=== PATIENT | female | born 1970 | race African-American/Black ===

== ENCOUNTER 2017-03-08 16:50 | Emergency (ER) | payer BC ==
[~2017-03-08] VITALS: Ht 170.2 cm; Wt 103.0 kg
[~2017-03-08 16:50] MED LIST: ALTACE10 MG PO; ASPIR 8181 MG PO; COREG3.125 MG PO; COZAAR 50 MG TA50 M2 PO; GUAIFENESIN-CODE5 ML PO; HYDROCODONE-AP1 EAC6 PO; IBUPROFEN 600600 M1 PO; IBUPROFEN 800800 M1 PO; LASIX 20 MG TAB20 MG PO; MULTIVITAMIN; NEXIUM20 M1 PO; NORCO 5-325 TA1 EACH PO; NORFLEX100 MG PO; NORVASC 5 MG TAB5 MG PO; NORVASC10 MG PO; OMEPRAZOLE40 MG PO; ONDANSETRON HCL4 M2 PO; OXYCONTIN10 M1 OR; PHENERGAN 25 MG25 M1 PO; PROTONIX40 M1 PO; TUSSIONEX PENN473 ML PO; ULTRACET TABLE1 EACH PO; VALIUM2 MG PO; ZANTAC 150MG T150 MG; ZANTAC 150MG T150 MG PO; ZESTRIL20 MG PO; ZOFRAN ODT4 MG PO; ZPAK PO
[2017-03-08] MEDS ORDERED: HYDROCODONE-AP1 EAC6 PO (18:06)
[2017-03-08] MEDS ORDERED: LIORESAL 10 MG10 MG PO (18:06)
[2017-03-08] MEDS ORDERED: PHENERGAN 25 MG25 M1 PO (18:23)
== END 2017-03-08 18:27 | disposition home or self-care (01) ==
LOC: ER 16:50
DX: M54.40 Lumbago with sciatica, unspecified side (principal); I10 Essential (primary) hypertension; Z90.710 Acquired absence of both cervix and uterus; Z79.82 Long term (current) use of aspirin; Z88.5 Allergy status to narcotic agent; Z88.2 Allergy status to sulfonamides; V89.2XXA Person injured in unspecified motor-vehicle accident, traffic, initial encounter; Y93.89 Activity, other specified; Y92.89 Other specified places as the place of occurrence of the external cause; Y99.8 Other external cause status

== ENCOUNTER 2017-06-24 12:32 | Emergency (ER) | payer BC ==
[~2017-06-24] VITALS: Ht 170.2 cm; Wt 103.4 kg
[~2017-06-24 12:32] MED LIST changes: +LIORESAL 10 MG10 MG PO
[2017-06-24] MEDS ORDERED: TRAMADOL 50 MG50 MG PO (13:19)
[2017-06-24] MEDS ORDERED: NAPROSYN500 MG PO (13:19)
[2017-06-24 13:37] VITALS: BP 130/62
[2017-10-17] MEDS ORDERED: PERCOCET 10-321 EACH PO (21:02)
[2017-10-17] MEDS ORDERED: CYCLOBENZAPRINE5 MG PO (23:05)
[2017-10-17] MEDS ORDERED: NORCO 10-325 T1 EACH PO (23:05)
[2017-10-17] MEDS ORDERED: ULTRAM 50MG TAB50 MG PO (23:16)
== END 2017-06-24 13:38 | disposition home or self-care (01) ==
LOC: ER 12:32
DX: S67.21XA Crushing injury of right hand, initial encounter (principal); W22.8XXA Striking against or struck by other objects, initial encounter; Y93.89 Activity, other specified; Y92.89 Other specified places as the place of occurrence of the external cause; Y99.8 Other external cause status; I10 Essential (primary) hypertension; Z85.528 Personal history of other malignant neoplasm of kidney; Z90.710 Acquired absence of both cervix and uterus; Z88.2 Allergy status to sulfonamides; Z88.5 Allergy status to narcotic agent

== ENCOUNTER 2017-07-28 01:19 | Emergency (ER) | payer BC ==
[~2017-07-28] VITALS: Ht 170.2 cm; Wt 102.1 kg
[~2017-07-28 01:19] MED LIST changes: +NAPROSYN500 MG PO; +TRAMADOL 50 MG50 MG PO
[2017-07-28 01:53] LABS: HEMATOCRIT 38.8 % (37.0-47.0); HEMOGLOBIN 12.2 gm/dL (12.0-15.0); MCHC 31.3 g/dL (28.0-37.0); MCV 79.9 fL (80.0-100.0); RBC 4.86 mil/uL (4.20-5.00); RDW 17.5 % (10.5-14.5); WBC 3.9 thou/uL (4.0-11.0)
[2017-07-28 01:55] LABS: URINE BILIRUBIN NEGATIVE (Negative); URINE BLOOD NEGATIVE (Negative); URINE CLARITY CLEAR; URINE COLOR YELLOW; URINE GLUCOSE-RANDOM* NEGATIVE (Negative); URINE KETONES NEGATIVE (Negative); URINE LEUKOCYTES-REFLEX NEGATIVE (Negative); URINE NITRITE-REFLEX NEGATIVE (Negative); URINE PROTEIN (DIPSTICK) NEGATIVE (Negative); URINE SPECIFIC GRAVITY >= 1.030 (1.005-1.035); URINE UROBILINOGEN 0.2 E.U./dl (0.2-1.0)
[2017-07-28 02:01] LABS: CALCIUM 9.1 mg/dL (8.5-10.1); CREATININE 1.4 mg/dL (0.6-1.0)
[2017-07-28 02:07] LABS: ALBUMIN 3.5 g/dL (3.4-5.0); TOTAL BILIRUBIN 0.2 mg/dL (<0.1-1.0); TOTAL PROTEIN 7.5 g/dL (6.4-8.2)
[2017-07-28] MEDS ORDERED: TESSALON PERLE100 MG PO (02:28)
[2017-07-28 03:41] VITALS: BP 137/74
[2017-10-17] MEDS ORDERED: PERCOCET 10-321 EACH PO (21:02)
[2017-10-17] MEDS ORDERED: CYCLOBENZAPRINE5 MG PO (23:05)
[2017-10-17] MEDS ORDERED: NORCO 10-325 T1 EACH PO (23:05)
[2017-10-17] MEDS ORDERED: ULTRAM 50MG TAB50 MG PO (23:16)
== END 2017-07-28 04:04 | disposition home or self-care (01) ==
LOC: ER 01:19
PROVIDERS: Emergency Medicine
DX: R05 Cough (principal); R51 Headache; M79.1 Myalgia; I10 Essential (primary) hypertension; Z90.710 Acquired absence of both cervix and uterus; Z88.2 Allergy status to sulfonamides; Z88.5 Allergy status to narcotic agent

== ENCOUNTER 2017-08-24 18:23 | Emergency (ER) | payer BC ==
[~2017-08-24] VITALS: Ht 172.7 cm; Wt 90.7 kg
--- NOTE | ~2017-08-24 | EKG ---
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
[~2017-08-24 18:23] MED LIST changes: +TESSALON PERLE100 MG PO
[2017-08-24] MEDS ORDERED: OMEPRAZOLE20 M2 PO (18:35)
[2017-08-24 18:43] LABS: ABSOLUTE NEUTROPHILS 3.5 thou/uL (1.4-8.2); EOSINOPHILS 3.4 % (0.0-3.0); HEMATOCRIT 38.4 % (37.0-47.0); HEMOGLOBIN 12.1 gm/dL (12.0-15.0); LYMPHOCYTES 41.5 % (24.0-44.0); MCHC 31.4 g/dL (28.0-37.0); MCV 79.5 fL (80.0-100.0); MONOCYTES 11.2 % (1.0-8.0); PLATELET COUNT 275 thou/uL (150-400); POLYS 42.9 % (36.0-66.0); RBC 4.83 mil/uL (4.20-5.00); WBC 8.2 thou/uL (4.0-11.0)
[2017-08-24 18:48] LABS: ANION GAP 9 mmol/L (7-16); BUN 15 mg/dL (7-18); CALCIUM 9.8 mg/dL (8.5-10.1); CHLORIDE 105 mmol/L (98-107); CO2 28 mmol/L (21-32); CREATININE 1.3 mg/dL (0.6-1.0); GLUCOSE 78 mg/dL (74-106); POTASSIUM 3.7 mmol/L (3.5-5.1); SODIUM 142 mmol/L (136-145)
[2017-08-24 18:57] LABS: TROPONIN-I < 0.04 ng/mL (<0.06)
[2017-08-24] MEDS ORDERED: ULTRAM 50MG TAB50 MG PO (21:41)
[2017-08-24] MEDS ORDERED: NORFLEX100 MG PO (21:41)
[2017-08-24 22:17] VITALS: BP 130/85
[2017-10-17] MEDS ORDERED: PERCOCET 10-321 EACH PO (21:02)
[2017-10-17] MEDS ORDERED: NORCO 10-325 T1 EACH PO (23:05)
[2017-10-17] MEDS ORDERED: CYCLOBENZAPRINE5 MG PO (23:05)
[2017-10-17] MEDS ORDERED: ULTRAM 50MG TAB50 MG PO (23:16)
== END 2017-08-24 22:21 | disposition home or self-care (01) ==
LOC: ER 18:23
PROVIDERS: Emergency Medicine
DX: R07.9 Chest pain, unspecified (principal); I10 Essential (primary) hypertension; Z90.5 Acquired absence of kidney; Z88.2 Allergy status to sulfonamides

== ENCOUNTER → 2017-09-07 | Outpatient (CLI) | payer BC ==
[~2017-09-07] MED LIST changes: +BISACODYL SUPP10 MG RECTAL; +CARAFATE 11 GM/10 M1 PO; +CIPRO500 MG PO; +COLACE 100 MG100 MG PO; +CYCLOBENZAPRINE5 MG PO; +FLAGYL500 MG PO; +MIRALAX17 GM PO; +NORCO 10-325 T1 EACH PO; +OMEPRAZOLE20 M2 PO; +PERCOCET 10-321 EACH PO; +ULTRAM 50MG TAB50 MG PO; +VIBRAMYCIN 100100 MG PO
== END ==
LOC: NUC 06:30
DX: Z01.818 Encounter for other preprocedural examination (principal); R07.9 Chest pain, unspecified

== ENCOUNTER 2018-01-15 15:23 | Inpatient (IN) | payer BC ==
[~2018-01-15] VITALS: Ht 167.6 cm; Wt 101.2 kg
--- NOTE | ~2018-01-15 | PATH ---
[facility] [address] [address] PATHOLOGY RPT PROCEDURE Name: LEXI BROOKS Room #: 224-P DIS IN M.R.#: [id number] Admission: 01/15/18 Date of : 68 Discharge: 01/20/18 Report #: [id number] Path Case #: [id number] [facility] Accession Number: [id number] . 01 Material submitted: . PART A: BX OF GASTRIC R/O H. PYLORI PART B: BX OF MID SIGMOID COLON . 01 Clinical history: . Rectal bleeding, abdominal pain, gastritis, abnormal CT, diverticulosis, sigmoid ulcer . 02 Diagnosis: A. Gastric mucosa, gastric rule out H. pylori, endoscopic biopsy: - Mild chronic active gastritis. - Negative for intestinal metaplasia or atrophy. - Negative for Helicobacter pylori (please see comment). . B. Large intestine mucosa, mid sigmoid colon, endoscopic biopsy: - Mild active colitis (please see comment). - Negative for dysplasia or malignancy. [facility]/01/23/2018 . 02 Comment: Part A: Well controlled Helicobacter pylori immunohistochemical stain performed on block A1-negative. . An intensive search for Helicobacter pylori-like organisms is negative. Absence of such organisms does not entirely exclude the possibility and may be due to sampling. Other possible etiologies may include chemical gastritis, autoimmune gastritis, gastritis associated with inflammatory bowel disease. Please correlate with clinical, endoscopic, and microbiological studies if clinically indicated. . Part B: Sections of the colonic mucosa designated "mid sigmoid colon" show focal cryptitis, and a moderately cellular lamina propria composed predominantly of lymphocytes and plasma cells and occasional eosinophils. Surface ulceration is not identified. There are no crypt abscesses, granulomas or viral inclusions. The process affects all the fragments with a similar intensity. Given the description, the differential diagnosis includes mild active colitis due to diverticulitis, infectious colitis, medication induced colitis, or early inflammatory bowel disease. Focal lamina propria fibrosis raises concern for a partially sampled ischemic colitis. Fibrin filled vessels are not identified in any of the biopsy fragments. Please correlate with clinical as well as endoscopic findings. . [address] [address] PATHOLOGY RPT PROCEDURE Name: LEXI BROOKS Room #: 224-P DIS IN M.R.#: [id number] Admission: 01/15/18 Date of : 68 Discharge: 01/20/18 Report #: [id number] Path Case #: [id number] (IUV:pit 01/23/2018) . 02 Electronically signed: . Linda Ortega MD, Pathologist NPI- [id number] . 01 Gross description: . A. Received in formalin labeled "Lexi Brooks, BX of gastritis rule out H pylori" is a 0.4 cm soft wise tissue fragment which is entirely submitted as A1. . B. Received in formalin labeled "Lexi Brooks, biopsy of mid sigmoid colon" are 3 soft wise tissue fragments each averaging 0.2 cm which are entirely submitted as B1. (DORIS; 01/20/2018) JBR/JBR . 02 Pathologist provided ICD-10: K29.50, K52.9 . 02 CPT . 147898, 992583, H02247 Performed at: [address], [place] [id number] MD Piotr Hanks MD Phone: [phone] Performed at: [address] [id number] MD Linda Ortega MD Phone: [phone]
--- NOTE | ~2018-01-15 | HC ---
[facility] [place] [address] CONSULTATION Name: ANICETO BROOKS Room #: 449-I ADM IN M.R.#: [id number] Admission: 01/15/18 Attend Phys: Bong Jara MD Discharge: Date of : 68 Report #: [id number] THIS REPORT FOR: //name// CC: Jesika Jara DATE OF SERVICE: 01/16/2018 TYPE OF REPORT: Infectious diseases consultation. REASON FOR EVALUATION: Colitis. HISTORY OF PRESENT ILLNESS: The patient was a 47-year old with a history of obesity, lumbar spinal stenosis and irritable bowel syndrome, predominance of constipation. On 01/05/2018 at [facility], the patient underwent lumbar diskectomy, L4, L5, S1 with good result in the early postoperative period. She had bilateral radicular pain, which has resolved. Following surgery, she was constipated. It has been over a week since she had a bowel movement. She was starting to have some further abdominal discomfort. Tried laxatives without improvement. 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 With this was Randall, pink lemonade and Setswana fries. Following this, within about an hour, she developed some abdominal discomfort associated with some nausea and vomiting. She then started passing stool. Very hard large bowel movement was produced. Along with this, she started having significant abdominal pain. She presented to the Emergency Room at [facility] on 01/14/2018 with no new diagnosis. CT scan did not show evidence of an infection. She was later discharged but continued to have bright red blood per rectum. Along with this was a small amount of liquid stool. She had some chills without documented fever. She had sweats. Presents on 01/15/2018 to the Emergency Room with continued abdominal pain. She continued to pass blood per rectum, bright red in nature. She reports the pain is persistent, achy with some cramping before a bowel movement. No radicular features. No increased back pain. No dysuria or frequency. No vaginal discharge. REVIEW OF SYSTEMS: CONSTITUTIONAL: Unremarkable other than the above. HEENT: Negative. SKIN: Negative. LYMPHATIC: Negative. HEMATOLOGIC: Negative. CARDIAC: Negative. PULMONARY: Negative. GASTROINTESTINAL: As above. GENITOURINARY: Negative. [facility] [address] [place] [address] CONSULTATION Name: ANICETO BROOKS Room #: 449-I [facility] IN ..#: [id number] Admission: 01/15/18 Attend Phys: Bong Jara MD Discharge: Date of : 68 Report #: [id number] JOINTS: Negative. NEUROLOGICAL: As above. PSYCHIATRIC: Negative. ALLERGY: Negative. PAST MEDICAL HISTORY: Hypertension; spinal stenosis; kidney cancer with left nephrectomy; hysterectomy; bone spur removed from her shoulder; cyst, right wrist, removed; bladder sling repair; irritable bowel syndrome; pulmonary embolus and gastroesophageal reflux. ALLERGIES: SULFA. MEDICATIONS: As noted on her MAR, now on metronidazole. She was on no blood thinners other than one baby aspirin a day. FAMILY HISTORY: Coronary artery disease and inflammatory bowel disease. SOCIAL HISTORY: Nonsmoker. No significant alcohol intake. Works for the [employer]. PHYSICAL EXAMINATION: VITAL SIGNS: Afebrile and hemodynamically stable. GENERAL: She is alert and cooperative, in no acute distress. Obese. Tattoos. SKIN: Otherwise, unremarkable. Peripheral adenopathy unremarkable. HEENT: Unremarkable. NECK: Supple. No thyromegaly or mass. LUNGS: Clear. No consolidation or adventitial sounds. HEART: Regular, without murmur, gallop or rub. ABDOMEN: Obese. Positive bowel sounds. Mild tenderness in the left abdomen, mostly in the left lower quadrant without guarding or rebound. No hepatosplenomegaly. No mass. RECTAL: She had some external hemorrhoid tissue evident. I did not appreciate any fissure. She had some tenderness to palpation of the anus. I did not appreciate any mass. Stool was loose but brown. External genitalia unremarkable. EXTREMITIES: Unremarkable. BACK: Incision well approximated. No surrounding erythema. NEUROLOGICAL: Nonfocal. LABORATORY STUDIES: Sodium 139, potassium 3.6, bicarbonate 23 and creatinine 1.4. Liver function test normal. Hemoglobin 11; WBC 9.2 and platelet count 348,000. Differential was unremarkable. Beta hCG negative. Urinalysis negative. RADIOLOGICAL DATA: CT scan showed some basilar atelectasis, left nephrectomy, descending colon and sigmoid colon, inflammatory change scattered diverticula, [facility] [address] [place] [address] CONSULTATION Name: ANICETO BROOKS Room #: 449-I ADM IN ..#: [id number] Admission: 01/15/18 Attend Phys: Bong Jara MD Discharge: Date of : 68 Report #: [id number] postoperative seroma and L4-L5 laminectomy. IMPRESSION: A 47-year old with underlying irritable bowel syndrome, now postoperative day #11 from lumbar laminectomy with associated seroma. Presentation with left lower quadrant abdominal pain associated with bright red blood per rectum after passing large hard stool. Would be concerned for development of a hemorrhoidal tear versus a fissure, although I do not detect one on examination versus ischemic bowel related to distention from her impaction versus Clostridium difficile colitis due to previous antibiotic use prior to surgery and at the time of surgery versus bacterial colitis. The timing seems too soon after the hamburger to have developed a colitis for she had symptoms within an hour or so. Clostridium difficile colitis would be unusual with this amount of blood production. Ischemia or hemorrhoidal bleed would be most likely. The patient does appear to be improving on her current treatment program. Other issues include hypertension, mild renal insufficiency from previous left nephrectomy and mild anemia. RECOMMENDATIONS: I agree with current management. We will continue with metronidazole, pending further studies including Clostridium difficile by PCR, stool culture. Serial CBC to follow her hemoglobin. If persistent symptoms, we would consider lower endoscopy to further assess for ischemia versus hemorrhoidal disease. <ELECTRONICALLY SIGNED> By: Sergey Buchanan MD 01/17/18 1616 1735 2138 Sergey Buchanan MD /nt
[2018-01-15 15:23] VITALS: BP 146/104
[~2018-01-15 15:23] MED LIST changes: -BISACODYL SUPP10 MG RECTAL; -CARAFATE 11 GM/10 M1 PO; -CIPRO500 MG PO; -COLACE 100 MG100 MG PO; -FLAGYL500 MG PO; -MIRALAX17 GM PO; -VIBRAMYCIN 100100 MG PO
[2018-01-15 16:09] LABS: URINE BLOOD NEGATIVE (Negative); URINE CLARITY CLEAR; URINE COLOR YELLOW; URINE GLUCOSE-RANDOM* NEGATIVE (Negative); URINE KETONES 1+ (Negative); URINE LEUKOCYTES-REFLEX NEGATIVE (Negative); URINE NITRITE-REFLEX NEGATIVE (Negative); URINE PROTEIN (DIPSTICK) NEGATIVE (Negative); URINE SPECIFIC GRAVITY >= 1.030 (1.005-1.035); URINE UROBILINOGEN 0.2 E.U./dl (0.2-1.0)
[2018-01-15 16:11] LABS: ICTOTEST (BILI CONFIRMATORY) Negative (Negative); URINE BILIRUBIN NEGATIVE (Negative)
[2018-01-15 16:12] LABS: ABSOLUTE NEUTROPHILS 7.6 thou/uL (1.4-8.2); BASOPHILS 0.7 % (0.0-2.0); EOSINOPHILS 0.5 % (0.0-3.0); HEMATOCRIT 39.6 % (37.0-47.0); HEMOGLOBIN 12.8 gm/dL (12.0-15.0); LYMPHOCYTES 23.5 % (24.0-44.0); MCH 25.5 pg (26.0-34.0); MCHC 32.2 g/dL (28.0-37.0); MCV 79.1 fL (80.0-100.0); PLATELET COUNT 416 thou/uL (150-400); POLYS 67.3 % (36.0-66.0); RBC 5.01 mil/uL (4.20-5.00); RDW 17.3 % (10.5-14.5); WBC 11.3 thou/uL (4.0-11.0)
[2018-01-15 16:16] LABS: CASTS None Seen /LPF (None Seen); CRYSTALS None Seen /LPF (None Seen); MUCUS 4-6 Moderate strn/LPF (None Seen); SQUAMOUS 4-10 Moderate /LPF (0-3)
[2018-01-15 16:17] LABS: BACTERIA-REFLEX None Seen /HPF (None Seen); URINE RBC 0-2 Rare /HPF (0-2); URINE WBC-REFLEX 0-5 Rare /HPF (0-5)
[2018-01-15 16:19] LABS: CALCIUM 10.1 mg/dL (8.5-10.1); CREATININE 1.4 mg/dL (0.6-1.0); POTASSIUM 4.6 mmol/L (3.5-5.1)
[2018-01-15 16:25] LABS: ALBUMIN 3.6 g/dL (3.4-5.0); TOTAL BILIRUBIN 0.6 mg/dL (<0.1-1.0); TOTAL PROTEIN 8.8 g/dL (6.4-8.2)
[2018-01-15 19:27] VITALS: BP 143/98
[2018-01-15 19:32] VITALS: BP 124/76
[2018-01-15 20:40] VITALS: BP 127/73
[2018-01-16 03:53] VITALS: BP 110/78
[2018-01-16 05:51] LABS: HEMATOCRIT 33.8 % (37.0-47.0); MCH 26.1 pg (26.0-34.0); MCHC 32.5 g/dL (28.0-37.0); MCV 80.2 fL (80.0-100.0); RBC 4.22 mil/uL (4.20-5.00); WBC 9.2 thou/uL (4.0-11.0)
[2018-01-16 06:03] LABS: CALCIUM 8.9 mg/dL (8.5-10.1); CREATININE 1.4 mg/dL (0.6-1.0)
[2018-01-16 06:04] LABS: POTASSIUM 3.6 mmol/L (3.5-5.1)
[2018-01-16 08:00] VITALS: BP 122/60
[2018-01-16 15:40] VITALS: BP 92/56
[2018-01-16 19:23] VITALS: BP 114/68
[2018-01-17 02:34] VITALS: BP 120/73
[2018-01-17 05:57] LABS: ABSOLUTE NEUTROPHILS 2.7 thou/uL (1.4-8.2); BASOPHILS 0.4 % (0.0-2.0); EOSINOPHILS 1.9 % (0.0-3.0); HEMATOCRIT 31.7 % (37.0-47.0); HEMOGLOBIN 10.1 gm/dL (12.0-15.0); MCH 25.5 pg (26.0-34.0); MCHC 31.9 g/dL (28.0-37.0); MCV 79.8 fL (80.0-100.0); MONOCYTES 9.2 % (1.0-8.0); PLATELET COUNT 319 thou/uL (150-400); POLYS 44.5 % (36.0-66.0); RBC 3.97 mil/uL (4.20-5.00); RDW 17.5 % (10.5-14.5)
[2018-01-17 08:00] VITALS: BP 114/68
[2018-01-17 16:00] VITALS: BP 114/68; BP 96/61
[2018-01-17 19:07] VITALS: BP 108/63
[2018-01-18 04:03] VITALS: BP 100/61
[2018-01-18 06:07] LABS: ABSOLUTE NEUTROPHILS 2.1 thou/uL (1.4-8.2); BASOPHILS 0.5 % (0.0-2.0); EOSINOPHILS 2.2 % (0.0-3.0); HEMATOCRIT 33.4 % (37.0-47.0); HEMOGLOBIN 10.7 gm/dL (12.0-15.0); LYMPHOCYTES 48.5 % (24.0-44.0); MCH 25.8 pg (26.0-34.0); MCHC 32.2 g/dL (28.0-37.0); MCV 80.1 fL (80.0-100.0); MONOCYTES 8.6 % (1.0-8.0); PLATELET COUNT 338 thou/uL (150-400); POLYS 40.2 % (36.0-66.0); RBC 4.17 mil/uL (4.20-5.00); RDW 17.2 % (10.5-14.5); WBC 5.3 thou/uL (4.0-11.0)
[2018-01-18 06:27] LABS: CALCIUM 8.9 mg/dL (8.5-10.1); CREATININE 1.5 mg/dL (0.6-1.0); POTASSIUM 3.9 mmol/L (3.5-5.1)
[2018-01-18 09:06] VITALS: BP 116/77
[2018-01-18 19:10] VITALS: BP 142/88
[2018-01-19 07:30] VITALS: BP 110/69
[2018-01-19 09:14] LABS: ABSOLUTE NEUTROPHILS 2.3 thou/uL (1.4-8.2); BASOPHILS 1.7 % (0.0-2.0); EOSINOPHILS 1.6 % (0.0-3.0); HEMATOCRIT 33.7 % (37.0-47.0); HEMOGLOBIN 10.9 gm/dL (12.0-15.0); LYMPHOCYTES 40.5 % (24.0-44.0); MCH 25.4 pg (26.0-34.0); MCHC 32.4 g/dL (28.0-37.0); MCV 78.4 fL (80.0-100.0); MONOCYTES 10.6 % (1.0-8.0); PLATELET COUNT 310 thou/uL (150-400); POLYS 45.6 % (36.0-66.0); RDW 17.2 % (10.5-14.5); WBC 5.1 thou/uL (4.0-11.0)
[2018-01-19 09:21] LABS: CALCIUM 9.6 mg/dL (8.5-10.1); CREATININE 1.5 mg/dL (0.6-1.0); POTASSIUM 4.3 mmol/L (3.5-5.1)
[2018-01-19 20:07] VITALS: BP 119/74
[2018-01-20 07:35] VITALS: BP 123/89
[2018-01-20] MEDS ORDERED: COLACE 100 MG100 MG PO (14:06)
[2018-01-20] MEDS ORDERED: BISACODYL SUPP10 MG RECTAL (14:06)
[2018-01-20] MEDS ORDERED: CIPRO500 MG PO (14:06)
[2018-01-20] MEDS ORDERED: MIRALAX17 GM PO (14:06)
[2018-01-20] MEDS ORDERED: CARAFATE 11 GM/10 M1 PO (14:06)
[2018-01-20] MEDS ORDERED: FLAGYL500 MG PO (14:06)
[2018-01-20 14:30] VITALS: BP 123/89
== END 2018-01-20 16:31 | disposition home or self-care (01) | DRG 394 ==
LOC: ER 15:23 → EROBS 18:36 → 4W 18:36 → SICU 01-18 18:55 → ENTRNSPT 01-20 16:12 → SICU 01-20 16:31
PROVIDERS: Emergency Medicine; Hospitalist; Specialist
DX: K55.9 Vascular disorder of intestine, unspecified (principal); A09 Infectious gastroenteritis and colitis, unspecified; K21.9 Gastro-esophageal reflux disease without esophagitis; I12.9 Hypertensive chronic kidney disease with stage 1 through stage 4 chronic kidney disease, or unspecified chronic kidney disease; K58.9 Irritable bowel syndrome, unspecified; N18.9 Chronic kidney disease, unspecified; K59.00 Constipation, unspecified; D64.9 Anemia, unspecified; K44.9 Diaphragmatic hernia without obstruction or gangrene; K29.80 Duodenitis without bleeding; K57.30 Diverticulosis of large intestine without perforation or abscess without bleeding; R13.10 Dysphagia, unspecified; K29.70 Gastritis, unspecified, without bleeding; Z85.528 Personal history of other malignant neoplasm of kidney; Z90.5 Acquired absence of kidney; Z90.710 Acquired absence of both cervix and uterus; Z88.6 Allergy status to analgesic agent; Z88.2 Allergy status to sulfonamides; Z86.711 Personal history of pulmonary embolism; Z79.82 Long term (current) use of aspirin; Z79.899 Other long term (current) drug therapy; Z80.0 Family history of malignant neoplasm of digestive organs
CPT/HCPCS: 10040; 15002; 62110; 62900; 70005

== ENCOUNTER 2018-01-23 22:17 | Emergency (ER) | payer BC ==
[~2018-01-23] VITALS: Ht 167.6 cm; Wt 97.5 kg
[~2018-01-23 22:17] MED LIST changes: +BISACODYL SUPP10 MG RECTAL; +CARAFATE 11 GM/10 M1 PO; +CIPRO500 MG PO; +COLACE 100 MG100 MG PO; +FLAGYL500 MG PO; +MIRALAX17 GM PO
[2018-01-24 00:15] LABS: URINE BILIRUBIN NEGATIVE (Negative); URINE BLOOD NEGATIVE (Negative); URINE CLARITY CLEAR; URINE COLOR YELLOW; URINE GLUCOSE-RANDOM* NEGATIVE (Negative); URINE KETONES NEGATIVE (Negative); URINE NITRITE-REFLEX NEGATIVE (Negative); URINE PROTEIN (DIPSTICK) NEGATIVE (Negative); URINE SPECIFIC GRAVITY 1.025 (1.005-1.035); URINE UROBILINOGEN 0.2 E.U./dl (0.2-1.0)
[2018-01-24 00:16] LABS: URINE LEUKOCYTES-REFLEX TRACE (Negative)
[2018-01-24 00:53] LABS: ABSOLUTE NEUTROPHILS 4.3 thou/uL (1.4-8.2); BASOPHILS 0.8 % (0.0-2.0); EOSINOPHILS 0.8 % (0.0-3.0); HEMATOCRIT 37.1 % (37.0-47.0); HEMOGLOBIN 11.9 gm/dL (12.0-15.0); LYMPHOCYTES 36.3 % (24.0-44.0); MCH 25.5 pg (26.0-34.0); MCV 79.6 fL (80.0-100.0); MONOCYTES 9.2 % (1.0-8.0); PLATELET COUNT 315 thou/uL (150-400); POLYS 52.9 % (36.0-66.0); RBC 4.66 mil/uL (4.20-5.00); RDW 17.8 % (10.5-14.5); WBC 8.1 thou/uL (4.0-11.0)
[2018-01-24 00:55] LABS: CALCIUM 9.4 mg/dL (8.5-10.1); CREATININE 1.6 mg/dL (0.6-1.0); POTASSIUM 3.8 mmol/L (3.5-5.1)
[2018-01-24 01:01] LABS: ALBUMIN 3.6 g/dL (3.4-5.0); TOTAL BILIRUBIN 0.4 mg/dL (<0.1-1.0); TOTAL PROTEIN 7.9 g/dL (6.4-8.2)
== END 2018-01-24 01:37 | disposition home or self-care (01) ==
LOC: ER 22:17
PROVIDERS: Physician Assistant
DX: T80.1XXA Vascular complications following infusion, transfusion and therapeutic injection, initial encounter (principal); I80.8 Phlebitis and thrombophlebitis of other sites; M54.5 Low back pain; I10 Essential (primary) hypertension; Z90.5 Acquired absence of kidney; Z90.710 Acquired absence of both cervix and uterus; Z88.1 Allergy status to other antibiotic agents; Z88.5 Allergy status to narcotic agent

== ENCOUNTER 2018-01-27 20:32 | Emergency (ER) | payer BC ==
[~2018-01-27] VITALS: Ht 167.6 cm; Wt 97.5 kg
[2018-01-27] MEDS ORDERED: VIBRAMYCIN 100100 MG PO (21:18)
[2018-01-27] MEDS ORDERED: NORCO 5-325 TA1 EACH PO (21:18)
== END 2018-01-27 21:15 | disposition home or self-care (01) ==
LOC: ER 20:32
DX: L03.114 Cellulitis of left upper limb (principal); I80.8 Phlebitis and thrombophlebitis of other sites; I10 Essential (primary) hypertension; Z88.5 Allergy status to narcotic agent; Z88.2 Allergy status to sulfonamides; Z90.5 Acquired absence of kidney; Z90.710 Acquired absence of both cervix and uterus; Z90.721 Acquired absence of ovaries, unilateral; Z85.528 Personal history of other malignant neoplasm of kidney

== ENCOUNTER 2018-05-21 23:14 | Inpatient (IN) | payer BC ==
[~2018-05-21] VITALS: Ht 170.2 cm; Wt 92.5 kg
--- NOTE | ~2018-05-21 | EKG ---
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 : 1970 Requested By: Sergey Reyes Order Number: [id number] MD: Bryon Hilliard Measurements Intervals [place] Rate: 83 P: 46 CT: 149 QRS: 8 QRSD: 84 T: -6 QT: 407 QTc: 479 Interpretive Statements Sinus rhythm Left ventricular hypertrophy Nonspecific T wave abnormality Baseline wander in lead(s) V1,V2,V3,V4,V5,V6 Compared to ECG 08/24/2017 18:41:27 T-wave abnormality still present Electronically Signed On 05-22-2018 7:38:15 [employer] N[employer]ITION[employer]OR by Bryon Hilliard [email or web address] <ELECTRONICALLY SIGNED> By: Bryon Hilliard MD, [facility] 05/22/18 0738 2335 [id number] Bryon Hilliard MD, [facility] /EPI
--- NOTE | ~2018-05-21 | 2DMMODE ---
[facility] [address] [place] [address] 2 D/M-MODE ECHOCARDIOGRAM Name: ANICETO BROOKS Room #: 357-P ADM IN M.R.#: [id number] Admission: 05/22/18 Attend Phys: Gilmer Duvall Discharge: Date of : 68 Date of Service: 05/22/18 1311 Report #: [id number] THIS REPORT FOR: //name// APPROVED REPORT Study performed: 05/22/2018 10:37:43 EXAM: Comprehensive 2D, Doppler, and color-flow Echocardiogram Patient Location: Bedside Room #: 357 Status: routine BSA: 2.04 HR: 71 bpm BP: 121/78 mmHg Rhythm: NSR Other Information Study Quality: Fair Indications Chest Pain 2D Dimensions IVSd: 8.45 (7-11mm) LVOT Diam: 21.55 (18-24mm) LVDd: 56.47 mm PWd: 8.45 (7-11mm) Ascending Ao: 27.66 (22-36mm) LVDs: 46.37 (25-40mm) Aortic Root: 26.95 mm IVC: 15.00 mm Volumes Left Atrial Volume (Systole) Single Plane 4CH: 57.44 mL Single Plane 2CH: 46.32 mL LA ESV Index: 29.00 mL/m2 Aortic Valve AoV Peak Manav.: 1.21 m/s AO Peak Gr.: 5.86 mmHg LVOT Max P.03 mmHg LVOT Max V: 1.00 m/s JONELLE Vmax: 3.03 cm2 Mitral Valve E/A Ratio: 1.1 MV Decel. Time: 226.27 ms MV E Max Manav.: 0.94 m/s MV A Manav.: 0.84 m/s [facility] [address] [place] [address] 2 D/M-MODE ECHOCARDIOGRAM Name: ANICETO BROOKS BASILIO Room #: 357-[facility] IN ..#: [id number] Admission: 05/22/18 Attend Phys: Gilmer Duvall Discharge: Date of : 68 Date of Service: 05/22/18 1311 Report #: [id number] MV PHT: 65.62 ms IVRT: 87.66 ms Pulmonary Valve PV Peak Manav.: 0.74 m/s PV Peak Gr.: 2.22 mmHg Pulmonary Vein P Vein S: 0.39 m/s P Vein A: 0.20 m/s P Vein D: 0.31 m/s P Vein A Dur.: 92.3 msec P Vein S/D Ratio: 1.26 Tricuspid Valve TR Peak Manav.: 2.22 m/s TR Peak Gr.: 19.65 mmHg PA Pressure: 25.00 mmHg Left Ventricle The left ventricle is normal size. There is global hypokinesis of the left ventricle. There is normal left ventricular wall thickness. Left ventricular systolic function is mild to moderately decreased. LVEF is 40-45%. Moderate diastolic dysfunction is present (pseudonormal filling). Right Ventricle The right ventricle is normal size. The right ventricular systolic function is normal. Atria The left atrium size is normal. The right atrium size is normal. Aortic Valve The aortic valve is normal in structure. No aortic regurgitation is present. There is no aortic valvular stenosis. Mitral Valve The mitral valve is normal in structure. There is no mitral valve regurgitation noted. No evidence of mitral valve stenosis. Tricuspid Valve The tricuspid valve is normal in structure. There is trace tricuspid regurgitation. Estimated PAP 25 mmHg. There is no pulmonary hypertension. Pulmonic Valve The pulmonary valve is normal in structure. There is no pulmonic [address] [address] 2 D/M-MODE ECHOCARDIOGRAM Name: ANICETO BROOKS BASILIO Room #: 357-P [facility] IN ..#: [id number] Admission: 05/22/18 Attend Phys: Gilmer Duvall Discharge: Date of : 68 Date of Service: 05/22/18 1311 Report #: [id number] valvular regurgitation. Great Vessels The aortic root is normal in size. IVC is normal in size and collapses >50% with inspiration. Pericardium There is no pericardial effusion. <Conclusion> The left ventricle is normal size. There is normal left ventricular wall thickness. Left ventricular systolic function is mild to moderately decreased. Moderate diastolic dysfunction is present (pseudonormal filling). The right ventricle is normal size. The left atrium size is normal. The aortic valve is normal in structure. The mitral valve is normal in structure. There is trace tricuspid regurgitation. Estimated PAP 25 mmHg. <ELECTRONICALLY SIGNED> By: Adolfo Drake MD 05/22/181310 10 10 Adolfo Drake MD /INF
[~2018-05-21 23:14] MED LIST changes: +VIBRAMYCIN 100100 MG PO
[2018-05-21 23:28] VITALS: BP 151/98
[2018-05-22] VITALS (8 sets, daily range): BP systolic 115–157; BP diastolic 73–102
[2018-05-22 00:06] LABS: ABSOLUTE NEUTROPHILS 3.1 thou/uL (1.4-8.2); BASOPHILS 1.3 % (0.0-2.0); EOSINOPHILS 2.3 % (0.0-3.0); HEMATOCRIT 36.6 % (37.0-47.0); HEMOGLOBIN 11.8 gm/dL (12.0-15.0); LYMPHOCYTES 43.4 % (24.0-44.0); MCHC 32.4 g/dL (28.0-37.0); MCV 77.2 fL (80.0-100.0); MONOCYTES 7.7 % (1.0-8.0); PLATELET COUNT 276 thou/uL (150-400); POLYS 45.3 % (36.0-66.0); RBC 4.73 mil/uL (4.20-5.00); RDW 16.4 % (10.5-14.5); WBC 6.8 thou/uL (4.0-11.0)
[2018-05-22 00:17] LABS: ANION GAP 10 mmol/L (7-16); BUN 16 mg/dL (7-18); CALCIUM 9.6 mg/dL (8.5-10.1); CHLORIDE 103 mmol/L (98-107); CO2 28 mmol/L (21-32); CREATININE 1.3 mg/dL (0.6-1.0); GLUCOSE 108 mg/dL (74-106); POTASSIUM 3.7 mmol/L (3.5-5.1); SODIUM 141 mmol/L (136-145)
[2018-05-22 00:25] LABS: ALBUMIN 3.4 g/dL (3.4-5.0); SGOT 20 U/L (15-37); SGPT 32 U/L (30-65); TOTAL BILIRUBIN 0.3 mg/dL (<0.1-1.0); TOTAL PROTEIN 7.5 g/dL (6.4-8.2); TROPONIN-I <0.06 ng/mL (<0.06)
[2018-05-22] MEDS ORDERED: CARVEDILOL3.125 MG PO (02:42)
[2018-05-22 07:07] LABS: CHOLESTEROL 194 mg/dL (<200); HDL CHOLESTEROL 80 mg/dL (>40); LDL CHOLESTEROL 104 mg/dL (<100); TC:HDL 2.4 Ratio (Not establshd); TRIGLYCERIDE 52 mg/dL (<150); VLDL 10 mg/dL (<40)
[2018-05-23 03:10] VITALS: BP 106/70
[2018-05-23 03:36] LABS: ANION GAP 7 mmol/L (7-16); BUN 17 mg/dL (7-18); CALCIUM 9.2 mg/dL (8.5-10.1); CHLORIDE 106 mmol/L (98-107); CO2 27 mmol/L (21-32); CREATININE 1.3 mg/dL (0.6-1.0); GLUCOSE 108 mg/dL (74-106); POTASSIUM 4.3 mmol/L (3.5-5.1); SGOT 17 U/L (15-37); SGPT 29 U/L (30-65); SODIUM 140 mmol/L (136-145); TOTAL BILIRUBIN 0.3 mg/dL (<0.1-1.0); TOTAL PROTEIN 6.3 g/dL (6.4-8.2); TROPONIN-I <0.06 ng/mL (<0.06)
[2018-05-23 07:15] VITALS: BP 126/91
[2018-05-23 11:27] VITALS: BP 130/80
[2018-05-23] MEDS ORDERED: SIMETHICON CHEW80 M1 PO (14:00)
[2018-05-23 14:09] VITALS: BP 130/80
== END 2018-05-23 15:13 | disposition home or self-care (01) | DRG 313 ==
LOC: ER 23:14 → EROBS 05-22 01:08 → 3W 05-22 01:08 → ER 05-22 02:06 → 3W 05-22 02:06 → ENTRNSPT 05-23 15:04 → EDTRNSPTSTS 05-23 15:07 → 3W 05-23 15:13
PROVIDERS: Emergency Medicine; Nurse Practitioner Acute Care
DX: R07.89 Other chest pain (principal); I42.9 Cardiomyopathy, unspecified; I10 Essential (primary) hypertension; I25.10 Atherosclerotic heart disease of native coronary artery without angina pectoris; K80.50 Calculus of bile duct without cholangitis or cholecystitis without obstruction; G47.33 Obstructive sleep apnea (adult) (pediatric); K21.9 Gastro-esophageal reflux disease without esophagitis; Z85.528 Personal history of other malignant neoplasm of kidney; Z90.5 Acquired absence of kidney; Z86.718 Personal history of other venous thrombosis and embolism; Z90.710 Acquired absence of both cervix and uterus; Z90.79 Acquired absence of other genital organ(s); Z90.722 Acquired absence of ovaries, bilateral; Z79.82 Long term (current) use of aspirin; Z79.899 Other long term (current) drug therapy; Z88.2 Allergy status to sulfonamides; Z88.5 Allergy status to narcotic agent; Z80.0 Family history of malignant neoplasm of digestive organs
CPT/HCPCS: 10879

== ENCOUNTER → 2018-11-03 | Outpatient (CLI) | payer OTHER ==
[~2018-11-03] MED LIST changes: +CARVEDILOL3.125 MG PO; +SIMETHICON CHEW80 M1 PO
== END ==
LOC: CAT 11:41
DX: Z13.6 Encounter for screening for cardiovascular disorders (principal); E78.00 Pure hypercholesterolemia, unspecified; I25.10 Atherosclerotic heart disease of native coronary artery without angina pectoris

== ENCOUNTER 2019-01-02 17:02 | Emergency (ER) | payer BC, OTHER ==
[~2019-01-02] VITALS: Ht 167.6 cm; Wt 100.7 kg
[2019-01-02] MEDS ORDERED: COREG6.25 MG PO (17:07)
[2019-01-02] MEDS ORDERED: VITAMIN D5000 UNIT PO (17:08)
[2019-01-02] MEDS ORDERED: VITAMIN B COMP1 EAC7 PO (17:08)
[2019-01-02 17:50] LABS: ABSOLUTE NEUTROPHILS 3.9 thou/uL (1.4-8.2); BASOPHILS 0.9 % (0.0-2.0); EOSINOPHILS 2.4 % (0.0-3.0); HEMATOCRIT 38.2 % (37.0-47.0); HEMOGLOBIN 11.9 gm/dL (12.0-15.0); LYMPHOCYTES 40.4 % (24.0-44.0); MCH 24.5 pg (26.0-34.0); MCHC 31.1 g/dL (28.0-37.0); MCV 78.7 fL (80.0-100.0); MONOCYTES 9.1 % (1.0-8.0); PLATELET COUNT 286 thou/uL (150-400); POLYS 47.2 % (36.0-66.0); RBC 4.86 mil/uL (4.20-5.00); RDW 17.4 % (10.5-14.5); WBC 8.3 thou/uL (4.0-11.0)
[2019-01-02 17:56] LABS: ANION GAP 9 mmol/L (7-16); BUN 21 mg/dL (7-18); CALCIUM 9.9 mg/dL (8.5-10.1); CHLORIDE 105 mmol/L (98-107); CO2 26 mmol/L (21-32); CREATININE 1.4 mg/dL (0.6-1.0); GLUCOSE 81 mg/dL (74-106); POTASSIUM 4.1 mmol/L (3.5-5.1); SODIUM 140 mmol/L (136-145)
[2019-01-02 17:56] LABS: BE(vivo) -2.8 mmol/L (-2 to +3); HCO3 23.1 mmol/L (22.0-26.0); PCO2 VENOUS 44.2 mmHg (41.0-51.0); PO2 VENOUS 30.8 mmHg (35.0-45.0)
[2019-01-02 18:06] LABS: ALBUMIN 3.7 g/dL (3.4-5.0); MAGNESIUM 2.1 mg/dL (1.8-2.4); SGOT 22 U/L (15-37); SGPT 28 U/L (30-65); TOTAL BILIRUBIN 0.2 mg/dL (<0.1-1.0); TOTAL PROTEIN 8.2 g/dL (6.4-8.2)
[2019-01-02 18:07] LABS: TROPONIN-I <0.06 ng/mL (<0.06)
[2019-01-02 19:12] LABS: URINE BILIRUBIN NEGATIVE (Negative); URINE BLOOD NEGATIVE (Negative); URINE CLARITY CLEAR; URINE COLOR YELLOW; URINE GLUCOSE-RANDOM* NEGATIVE (Negative); URINE KETONES NEGATIVE (Negative); URINE LEUKOCYTES-REFLEX NEGATIVE (Negative); URINE NITRITE-REFLEX NEGATIVE (Negative); URINE PROTEIN (DIPSTICK) NEGATIVE (Negative); URINE UROBILINOGEN 0.2 E.U./dl (0.2-1.0)
[2019-01-02 19:21] LABS: AMP/METHAMP Negative (Negative); BARBITURATES Negative (Negative); BENZODIAZEPINES Negative (Negative); COCAINE Negative (Negative); METHADONE Negative (Negative); OPIATES POSITIVE (Negative); PCP Negative (Negative)
[2019-01-02] MEDS ORDERED: ZOFRAN ODT4 MG PO (19:38)
[2019-01-02 19:53] VITALS: BP 124/72
--- NOTE | 2019-01-05 17:21 | EKG ---
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1970 Requested By: Sergey Reyes Order Number: [id number] MD: Sabas Caceres Measurements Intervals [place] Rate: 62 P: 49 ME: 158 QRS: 21 QRSD: 89 T: 6 QT: 401 QTc: 408 Interpretive Statements Sinus rhythm Nonspecific ST-T wave changes Compared to ECG 05/21/2018 23:35:53 Left ventricular hypertrophy no longer present Electronically Signed On 01-05-2019 17:21:13 CDT by Sabas Caceres [email or web address] ��������������������������������������������� <ELECTRONICALLY SIGNED> ���������������������������������������� By: Sabas Caceres MD ��������������������������������������������� 01/05/19 1721 D: [id number] Sabas Caceres MD /LILLIANA
== END 2019-01-02 19:54 | disposition home or self-care (01) ==
LOC: ER 17:02
PROVIDERS: Emergency Medicine
DX: T58.01XA Toxic effect of carbon monoxide from motor vehicle exhaust, accidental (unintentional), initial encounter (principal); R42 Dizziness and giddiness; R51 Headache; I12.9 Hypertensive chronic kidney disease with stage 1 through stage 4 chronic kidney disease, or unspecified chronic kidney disease; N18.9 Chronic kidney disease, unspecified; Z85.528 Personal history of other malignant neoplasm of kidney; Z86.718 Personal history of other venous thrombosis and embolism; Z90.710 Acquired absence of both cervix and uterus; Z90.5 Acquired absence of kidney; Z79.899 Other long term (current) drug therapy; Y92.89 Other specified places as the place of occurrence of the external cause

== ENCOUNTER 2019-04-09 04:47 | Emergency (ER) | payer BC, OTHER ==
[~2019-04-09] VITALS: Ht 167.6 cm; Wt 101.2 kg
[~2019-04-09 04:47] MED LIST changes: +COREG6.25 MG PO; +VITAMIN B COMP1 EAC7 PO; +VITAMIN D5000 UNIT PO
[2019-04-09 05:36] LABS: URINE BILIRUBIN NEGATIVE (Negative); URINE BLOOD NEGATIVE (Negative); URINE CLARITY CLEAR; URINE COLOR YELLOW; URINE GLUCOSE-RANDOM* NEGATIVE (Negative); URINE KETONES NEGATIVE (Negative); URINE LEUKOCYTES NEGATIVE (Negative); URINE NITRITE NEGATIVE (Negative); URINE PROTEIN (DIPSTICK) NEGATIVE (Negative); URINE UROBILINOGEN 0.2 E.U./dl (0.2-1.0)
[2019-04-09 05:46] LABS: ABSOLUTE NEUTROPHILS 5.2 thou/uL (1.4-8.2); BASOPHILS 0.9 % (0.0-2.0); EOSINOPHILS 2.4 % (0.0-3.0); HEMATOCRIT 38.4 % (37.0-47.0); HEMOGLOBIN 12.1 gm/dL (12.0-15.0); LYMPHOCYTES 27.6 % (24.0-44.0); MCH 25.1 pg (26.0-34.0); MCHC 31.6 g/dL (28.0-37.0); MCV 79.6 fL (80.0-100.0); MONOCYTES 8.1 % (1.0-8.0); PLATELET COUNT 259 thou/uL (150-400); RBC 4.83 mil/uL (4.20-5.00); WBC 8.5 thou/uL (4.0-11.0)
[2019-04-09 05:56] LABS: CALCIUM 9.6 mg/dL (8.5-10.1); CREATININE 1.4 mg/dL (0.6-1.0); POTASSIUM 4.3 mmol/L (3.5-5.1)
[2019-04-09 06:01] LABS: ALBUMIN 3.7 g/dL (3.4-5.0); TOTAL BILIRUBIN 0.4 mg/dL (<0.1-1.0); TOTAL PROTEIN 8.1 g/dL (6.4-8.2)
[2019-04-09] MEDS ORDERED: FLAGYL500 M1 PO (07:43)
[2019-04-09] MEDS ORDERED: NORCO 5-325 TA1 EAC1 PO (07:43)
[2019-04-09] MEDS ORDERED: CIPROFLOXACIN500 M1 PO (07:43)
[2019-04-09 08:00] VITALS: BP 143/65
== END 2019-04-09 08:00 | disposition home or self-care (01) ==
LOC: ER 04:47
PROVIDERS: Emergency Medicine
DX: K57.32 Diverticulitis of large intestine without perforation or abscess without bleeding (principal); I12.9 Hypertensive chronic kidney disease with stage 1 through stage 4 chronic kidney disease, or unspecified chronic kidney disease; N18.9 Chronic kidney disease, unspecified; Z90.710 Acquired absence of both cervix and uterus; Z85.528 Personal history of other malignant neoplasm of kidney; Z90.721 Acquired absence of ovaries, unilateral; Z86.718 Personal history of other venous thrombosis and embolism; Z88.5 Allergy status to narcotic agent; Z88.2 Allergy status to sulfonamides

== ENCOUNTER → 2019-06-29 | Outpatient (CLI) | payer BC ==
[~2019-06-29] MED LIST changes: +CIPROFLOXACIN500 M1 PO; +FLAGYL500 M1 PO; +NORCO 5-325 TA1 EAC1 PO
== END ==
LOC: SJCVCIMAG 14:22
DX: I07.1 Rheumatic tricuspid insufficiency (principal); I10 Essential (primary) hypertension

== ENCOUNTER → 2021-06-17 | Outpatient (CLI) | payer BC, OTHER | LOC: SJCVCIMAG 14:05 | PROVIDERS: ATTEND Internal Medicine Cardiovascular Disease | DX: Z01.818 Encounter for other preprocedural examination (principal); I42.9 Cardiomyopathy, unspecified ==